=== PATIENT | male | born 1935 | race Caucasian/White ===

== ENCOUNTER 2019-05-24 18:30 | Inpatient (IN) | payer MEDICARE ==
[~2019-05-24] VITALS: Ht 172.7 cm; Wt 81.0 kg
[2019-05-24] MEDS ORDERED: PLEASE ENTER ALLERGIES MC SCH (22:00)
[2019-05-24] MEDS ORDERED: BISACODYL 10 MG SUPP PR PRN (22:00)
[2019-05-24] MEDS ORDERED: hydrALAzine 20 MG/ML, 1ML IVPush PRN (22:00)
[2019-05-24] MEDS ORDERED: POLYETHYLENE GLYCOL 17 GM PACKET PO PRN (22:00)
[2019-05-24 22:07] VITALS: BP 131/72
[2019-05-24] MEDS: SODIUM CHLORIDE 0.9% 1,000 ML IV SCH (22:40)
[2019-05-24] MEDS: CEFTRIAXONE PMX 1GM/50ML 50 ML IV SCH (22:40)
[2019-05-24] MEDS: HEPARIN 5,000 UNITS/ML, 1ML SQ SCH (22:41)
[2019-05-24] MEDS ORDERED: LEVO100T PO (23:29)
[2019-05-24] MEDS ORDERED: ENAL20TA PO (23:29)
[2019-05-24] MEDS ORDERED: TAMS-11 PO (23:29)
[2019-05-24] MEDS ORDERED: HYDR12.59 PO (23:29)
[2019-05-24] MEDS ORDERED: ASPI-430 PO (23:29)
[2019-05-24] MEDS ORDERED: FINA5TAB4 PO (23:29)
[2019-05-24] MEDS ORDERED: CHOL500051 PO (23:29)
[2019-05-25 00:02] LABS: CREATININE,URINE RANDOM 58.3 mg/dL
[2019-05-25 01:01] VITALS: BP 130/66
[2019-05-25] MEDS: LEVOTHYROXINE 100 MCG TABLET PO SCH (06:34)
[2019-05-25] MEDS: HEPARIN 5,000 UNITS/ML, 1ML SQ SCH ×3 (06:34→22:03)
[2019-05-25] MEDS: SODIUM CHLORIDE 0.9% 1,000 ML IV SCH (06:34)
[2019-05-25 07:45] LABS: ALANINE AMINOTRANSFERASE 24 U/L (12-78); ALBUMIN 2.2 g/dL (3.4-5.0); ANION GAP 21 mmol/L (5-15); CALCIUM 8.2 mg/dL (8.5-10.1); CHLORIDE 104 mmol/L (98-107)
[2019-05-25 07:49] LABS: ALKALINE PHOSPHATASE 99 U/L (45-117); BILIRUBIN,TOTAL 0.5 mg/dL (0.2-1.0); TOTAL PROTEIN 6.2 g/dL (6.4-8.2)
[2019-05-25 07:54] VITALS: BP 138/67
[2019-05-25 08:25] LABS: MEAN CORPUSCULAR HEMOGLOBIN 32.1 pg (27.5-34.5); MEAN CORPUSCULAR HGB CONC 32.9 g/dL (33.2-36.2); MEAN CORPUSCULAR VOLUME 97.6 fL (81-97); MEAN PLATELET VOLUME 12.4 fL (7.4-10.4); PLATELET COUNT 210 x10^3/uL (130-400); RED BLOOD COUNT 3.06 x10^6/uL (4.38-5.82); RED CELL DISTRIBUTION WIDTH 13.4 % (9.4-14.8)
[2019-05-25 08:26] LABS: MD YES
[2019-05-25 08:27] LABS: BAND#(MANUAL) 1.04 x10^3/uL; BANDS%(MANUAL) 4 % (0-7); LYMPH#(MANUAL) 2.85 x10^3/uL (1-3.4); LYMPHS% (MANUAL) 11 % (22-44); METAMYELOCYTES# (MANUAL) 0.26 x10^3/uL (0-0); METAMYELOCYTES% (MANUAL) 1 % (0-1); MONOS#(MANUAL) 2.33 x10^3/uL (0.3-2.7); MONOS% (MANUAL) 9 % (2-9); SEG#(MANUAL) 19.43 x10^3/uL (1.8-6.8); SEGS% (MANUAL) 75 % (42-75)
[2019-05-25 08:28] LABS: ECHINOCYTES 1+
[2019-05-25 08:29] LABS: <PLATELET ESTIMATE> ADEQUATE; LARGE PLATELETS 1+
[2019-05-25] MEDS: SENNA/DOCUSATE TABLET PO SCH (09:00)
[2019-05-25] MEDS: CHOLECALCIFEROL 5,000u TAB PO SCH (10:17)
[2019-05-25] MEDS: FINASTERIDE 5 MG TABLET PO SCH (10:18)
[2019-05-25] MEDS: TAMSULOSIN 0.4 MG CAP.ER.24H PO SCH (10:18)
[2019-05-25 11:20] LABS: ANION GAP 18 mmol/L (5-15); CALCIUM 7.9 mg/dL (8.5-10.1); CHLORIDE 102 mmol/L (98-107)
[2019-05-25 13:10] VITALS: BP 135/66
[2019-05-25] MEDS: SODIUM BICARB 8.4%,50ML SYR. 75 MEQ in SODIUM CHLORIDE 0.45% 1,000 ML IV SCH ×2 (13:45→23:52)
[2019-05-25 20:13] VITALS: BP_SYST 136; BP_SYST 137; BP_DIAS 73
[2019-05-25] MEDS: CEFTRIAXONE PMX 1GM/50ML 50 ML IV SCH (22:03)
[2019-05-26 00:14] VITALS: BP 143/73
[2019-05-26] MEDS: HEPARIN 5,000 UNITS/ML, 1ML SQ SCH ×3 (06:32→21:20)
[2019-05-26] MEDS: LEVOTHYROXINE 100 MCG TABLET PO SCH (06:33)
[2019-05-26 07:01] LABS: MEAN CORPUSCULAR HEMOGLOBIN 32.6 pg (27.5-34.5); MEAN CORPUSCULAR HGB CONC 33.7 g/dL (33.2-36.2); MEAN CORPUSCULAR VOLUME 96.9 fL (81-97); MEAN PLATELET VOLUME 13.1 fL (7.4-10.4); PLATELET COUNT 246 x10^3/uL (130-400); RED BLOOD COUNT 2.67 x10^6/uL (4.38-5.82); RED CELL DISTRIBUTION WIDTH 13.9 % (9.4-14.8)
[2019-05-26 07:11] LABS: ALBUMIN 2.1 g/dL (3.4-5.0); ANION GAP 18 mmol/L (5-15); CALCIUM 8.1 mg/dL (8.5-10.1); CHLORIDE 105 mmol/L (98-107)
[2019-05-26 07:50] LABS: MD YES
[2019-05-26 07:52] LABS: BAND#(MANUAL) 1.18 x10^3/uL; BANDS%(MANUAL) 6 % (0-7); EOS% (MANUAL) 1 % (1-7); LYMPH#(MANUAL) 1.38 x10^3/uL (1-3.4); LYMPHS% (MANUAL) 7 % (22-44); MONOS#(MANUAL) 0.59 x10^3/uL (0.3-2.7); MONOS% (MANUAL) 3 % (2-9); SEG#(MANUAL) 16.35 x10^3/uL (1.8-6.8); SEGS% (MANUAL) 83 % (42-75)
[2019-05-26 07:53] LABS: <PLATELET ESTIMATE> ADEQUATE; ANISOCYTOSIS 1+; LARGE PLATELETS 1+
[2019-05-26 08:00] VITALS: BP 151/72
[2019-05-26] MEDS: FINASTERIDE 5 MG TABLET PO SCH (08:48)
[2019-05-26] MEDS: TAMSULOSIN 0.4 MG CAP.ER.24H PO SCH (08:49)
[2019-05-26] MEDS: CHOLECALCIFEROL 5,000u TAB PO SCH (08:49)
[2019-05-26] MEDS: SENNA/DOCUSATE TABLET PO SCH (08:49)
[2019-05-26] MEDS: SODIUM BICARB 8.4%,50ML SYR. 75 MEQ in SODIUM CHLORIDE 0.45% 1,000 ML IV SCH ×2 (08:50→22:08)
[2019-05-26] MEDS: ONDANSETRON ODT 4 MG PO PRN (12:27)
[2019-05-26 15:00] VITALS: BP 123/66
[2019-05-26 17:46] LABS: CREATININE,URINE RANDOM 42.5 mg/dL
[2019-05-26 17:53] LABS: MICROSCOPIC INDICATED
[2019-05-26 17:56] LABS: CULTURE INDICATED? YES
[2019-05-26 19:53] VITALS: BP 125/69
[2019-05-26] MEDS: CEFTRIAXONE PMX 1GM/50ML 50 ML IV SCH (22:08)
[2019-05-27 02:05] VITALS: BP 153/64
[2019-05-27] MEDS: LEVOTHYROXINE 100 MCG TABLET PO SCH (05:48)
[2019-05-27] MEDS: HEPARIN 5,000 UNITS/ML, 1ML SQ SCH ×3 (05:49→22:26)
[2019-05-27 07:13] VITALS: BP 145/69
[2019-05-27 07:15] LABS: ANION GAP 19 mmol/L (5-15); CALCIUM 7.7 mg/dL (8.5-10.1); CHLORIDE 103 mmol/L (98-107)
[2019-05-27 07:51] LABS: MEAN CORPUSCULAR HEMOGLOBIN 32.7 pg (27.5-34.5); MEAN CORPUSCULAR HGB CONC 33.5 g/dL (33.2-36.2); MEAN CORPUSCULAR VOLUME 97.7 fL (81-97); MEAN PLATELET VOLUME 12.3 fL (7.4-10.4); PLATELET COUNT 252 x10^3/uL (130-400); RED BLOOD COUNT 2.59 x10^6/uL (4.38-5.82); RED CELL DISTRIBUTION WIDTH 13.8 % (9.4-14.8)
[2019-05-27 07:52] LABS: MD YES
[2019-05-27 07:54] LABS: BAND#(MANUAL) 0.99 x10^3/uL; BANDS%(MANUAL) 6 % (0-7); EOS#(MANUAL) 0.17 x10^3/uL (0.0-0.4); EOS% (MANUAL) 1 % (1-7); LYMPH#(MANUAL) 0.66 x10^3/uL (1-3.4); LYMPHS% (MANUAL) 4 % (22-44); MONOS#(MANUAL) 0.99 x10^3/uL (0.3-2.7); MONOS% (MANUAL) 6 % (2-9); SEGS% (MANUAL) 83 % (42-75)
[2019-05-27 08:00] LABS: <PLATELET ESTIMATE> ADEQUATE; ANISOCYTOSIS 1+; GIANT PLATELETS 1+; LARGE PLATELETS 1+
[2019-05-27] MEDS: TAMSULOSIN 0.4 MG CAP.ER.24H PO SCH (09:06)
[2019-05-27] MEDS: CHOLECALCIFEROL 5,000u TAB PO SCH (09:06)
[2019-05-27] MEDS: FINASTERIDE 5 MG TABLET PO SCH (09:07)
[2019-05-27] MEDS: SENNA/DOCUSATE TABLET PO SCH (09:07)
[2019-05-27 12:45] VITALS: BP 161/72
[2019-05-27] MEDS: SODIUM BICARB 8.4%,50ML SYR. 75 MEQ in SODIUM CHLORIDE 0.45% 1,000 ML IV SCH (14:42)
[2019-05-27 19:53] VITALS: BP 151/63
[2019-05-27] MEDS: CEFTRIAXONE PMX 1GM/50ML 50 ML IV SCH (22:26)
[2019-05-28 00:56] VITALS: BP 145/72
[2019-05-28 04:42] LABS: ANION GAP 18 mmol/L (5-15); CALCIUM 7.4 mg/dL (8.5-10.1); CHLORIDE 102 mmol/L (98-107)
[2019-05-28 05:01] LABS: MEAN CORPUSCULAR HEMOGLOBIN 32.6 pg (27.5-34.5); MEAN CORPUSCULAR HGB CONC 34.2 g/dL (33.2-36.2); MEAN CORPUSCULAR VOLUME 95.5 fL (81-97); MEAN PLATELET VOLUME 12.1 fL (7.4-10.4); PLATELET COUNT 274 x10^3/uL (130-400); RED BLOOD COUNT 2.55 x10^6/uL (4.38-5.82); RED CELL DISTRIBUTION WIDTH 13.4 % (9.4-14.8)
[2019-05-28] MEDS: LEVOTHYROXINE 100 MCG TABLET PO SCH (05:16)
[2019-05-28] MEDS: HEPARIN 5,000 UNITS/ML, 1ML SQ SCH ×2 (05:16→17:34)
[2019-05-28 06:33] LABS: MD YES
[2019-05-28 06:35] LABS: <PLATELET ESTIMATE> ADEQUATE; ANISOCYTOSIS 1+; LYMPH#(MANUAL) 2.92 x10^3/uL (1-3.4); LYMPHS% (MANUAL) 18 % (22-44); MONOS#(MANUAL) 0.97 x10^3/uL (0.3-2.7); MONOS% (MANUAL) 6 % (2-9); SEG#(MANUAL) 12.31 x10^3/uL (1.8-6.8); SEGS% (MANUAL) 76 % (42-75)
[2019-05-28 06:36] LABS: LARGE PLATELETS 1+
[2019-05-28 08:00] VITALS: BP 146/69
[2019-05-28] MEDS: FINASTERIDE 5 MG TABLET PO SCH (09:02)
[2019-05-28] MEDS: SENNA/DOCUSATE TABLET PO SCH (09:02)
[2019-05-28] MEDS: TAMSULOSIN 0.4 MG CAP.ER.24H PO SCH (09:02)
[2019-05-28] MEDS: CHOLECALCIFEROL 5,000u TAB PO SCH (09:02)
[2019-05-28] MEDS: SEVELAMER CARBONATE 800MG TAB PO SCH ×2 (12:31→17:34)
[2019-05-28] MEDS: SODIUM BICARB 8.4%,50ML SYR. 75 MEQ in SODIUM CHLORIDE 0.45% 1,000 ML IV SCH (15:09)
[2019-05-28 16:12] VITALS: BP 131/58
[2019-05-28 19:34] VITALS: BP 150/70
[2019-05-28] MEDS: CEFTRIAXONE PMX 1GM/50ML 50 ML IV SCH (22:10)
[2019-05-29] MEDS: HEPARIN 5,000 UNITS/ML, 1ML SQ SCH ×3 (01:11→16:52)
[2019-05-29 01:24] VITALS: BP 138/62
[2019-05-29] MEDS: LEVOTHYROXINE 100 MCG TABLET PO SCH (05:13)
[2019-05-29 06:04] LABS: MEAN CORPUSCULAR HEMOGLOBIN 32.2 pg (27.5-34.5); MEAN CORPUSCULAR HGB CONC 32.9 g/dL (33.2-36.2); MEAN CORPUSCULAR VOLUME 97.6 fL (81-97); RED BLOOD COUNT 2.53 x10^6/uL (4.38-5.82); RED CELL DISTRIBUTION WIDTH 13.4 % (9.4-14.8)
[2019-05-29 06:17] LABS: ANION GAP 17 mmol/L (5-15); CALCIUM 8.1 mg/dL (8.5-10.1); CHLORIDE 103 mmol/L (98-107)
[2019-05-29 06:24] LABS: % IRON SATURATION 17 % (20-55); CREATININE 8.25 mg/dL (0.7-1.3); IRON LEVEL 31 mcg/dL (65-175); TOTAL IRON BINDING CAPACITY 182 mcg/dL (250-450)
[2019-05-29 06:28] LABS: BASOPHILS # (AUTO) 0.04 x10^3/uL (0-0.1); BASOPHILS % (AUTO) 0 % (0-1); EOSINOPHILS % (AUTO) 0 % (1-7); LYMPHOCYTES # (AUTO) 0.59 x10^3/uL (1-3.4); LYMPHOCYTES % (AUTO) 4 % (22-44); MD SCAN; MEAN PLATELET VOLUME 11.6 fL (7.4-10.4); MONOCYTES # (AUTO) 0.66 x10^3/uL (0.2-0.8); MONOCYTES % (AUTO) 4 % (2-9); NEUTROPHILS # (AUTO) 15.14 x10^3/uL (1.8-6.8); NEUTROPHILS % (AUTO) 92 % (42-75); PLATELET COUNT 312 x10^3/uL (130-400)
[2019-05-29 06:53] VITALS: BP 128/60
[2019-05-29] MEDS: TAMSULOSIN 0.4 MG CAP.ER.24H PO SCH (08:15)
[2019-05-29] MEDS: CHOLECALCIFEROL 5,000u TAB PO SCH (08:15)
[2019-05-29] MEDS: FINASTERIDE 5 MG TABLET PO SCH (08:15)
[2019-05-29] MEDS: SEVELAMER CARBONATE 800MG TAB PO SCH ×3 (08:15→16:52)
[2019-05-29] MEDS: SENNA/DOCUSATE TABLET PO SCH (08:15)
[2019-05-29 13:45] VITALS: BP 149/66
[2019-05-29] MEDS ORDERED: SIMETHICONE 80 MG CHEW TAB PO PRN (16:00)
[2019-05-29 20:00] VITALS: BP 171/66
[2019-05-29] MEDS: CEFTRIAXONE PMX 1GM/50ML 50 ML IV SCH (22:34)
[2019-05-29 22:38] VITALS: BP 150/93
[2019-05-30 00:58] VITALS: BP 139/62
[2019-05-30] MEDS: HEPARIN 5,000 UNITS/ML, 1ML SQ SCH ×3 (01:00→17:00)
[2019-05-30 04:45] LABS: MEAN CORPUSCULAR HEMOGLOBIN 32.5 pg (27.5-34.5); MEAN CORPUSCULAR HGB CONC 33.5 g/dL (33.2-36.2); MEAN CORPUSCULAR VOLUME 97.3 fL (81-97); MEAN PLATELET VOLUME 10.8 fL (7.4-10.4); PLATELET COUNT 285 x10^3/uL (130-400); RED BLOOD COUNT 2.46 x10^6/uL (4.38-5.82); RED CELL DISTRIBUTION WIDTH 13.5 % (9.4-14.8)
[2019-05-30 04:56] LABS: ALBUMIN 1.9 g/dL (3.4-5.0); ANION GAP 11 mmol/L (5-15); CHLORIDE 103 mmol/L (98-107)
[2019-05-30 04:59] LABS: CREATININE 5.38 mg/dL (0.7-1.3)
[2019-05-30 05:48] LABS: BASOPHILS % (AUTO) 1 % (0-1); EOSINOPHILS # (AUTO) 0.03 x10^3/uL (0-0.4); EOSINOPHILS % (AUTO) 0 % (1-7); LYMPHOCYTES # (AUTO) 0.71 x10^3/uL (1-3.4); LYMPHOCYTES % (AUTO) 4 % (22-44); MD SCAN; MONOCYTES # (AUTO) 0.88 x10^3/uL (0.2-0.8); MONOCYTES % (AUTO) 5 % (2-9); NEUTROPHILS # (AUTO) 16.83 x10^3/uL (1.8-6.8); NEUTROPHILS % (AUTO) 91 % (42-75)
[2019-05-30] MEDS: LEVOTHYROXINE 100 MCG TABLET PO SCH (05:48)
[2019-05-30 06:19] VITALS: BP 152/67
[2019-05-30] MEDS: SEVELAMER CARBONATE 800MG TAB PO SCH ×3 (08:51→17:00)
[2019-05-30] MEDS: FINASTERIDE 5 MG TABLET PO SCH (08:51)
[2019-05-30] MEDS: TAMSULOSIN 0.4 MG CAP.ER.24H PO SCH (08:51)
[2019-05-30] MEDS: CHOLECALCIFEROL 5,000u TAB PO SCH (08:51)
[2019-05-30] MEDS: SENNA/DOCUSATE TABLET PO SCH (08:51)
[2019-05-30 12:13] VITALS: BP 162/70
[2019-05-30] MEDS: ONDANSETRON ODT 4 MG PO PRN (12:19)
[2019-05-30 19:38] VITALS: BP 155/64
[2019-05-30] MEDS: CEFTRIAXONE PMX 1GM/50ML 50 ML IV SCH (22:18)
[2019-05-31] MEDS: HEPARIN 5,000 UNITS/ML, 1ML SQ SCH ×4 (01:19→22:38)
[2019-05-31 01:34] VITALS: BP 147/70
[2019-05-31] MEDS: LEVOTHYROXINE 100 MCG TABLET PO SCH (05:41)
[2019-05-31 06:43] VITALS: BP 137/65
[2019-05-31 07:42] LABS: ANION GAP 12 mmol/L (5-15); CALCIUM 7.7 mg/dL (8.5-10.1); CHLORIDE 101 mmol/L (98-107); CREATININE 7.81 mg/dL (0.7-1.3)
[2019-05-31] MEDS: FINASTERIDE 5 MG TABLET PO SCH (08:38)
[2019-05-31] MEDS: TAMSULOSIN 0.4 MG CAP.ER.24H PO SCH (08:39)
[2019-05-31] MEDS: CHOLECALCIFEROL 5,000u TAB PO SCH (08:39)
[2019-05-31] MEDS: SEVELAMER CARBONATE 800MG TAB PO SCH ×3 (08:40→21:32)
[2019-05-31] MEDS: SENNA/DOCUSATE TABLET PO SCH (08:40)
[2019-05-31 13:02] VITALS: BP 131/62
[2019-05-31 22:18] VITALS: BP 154/68
[2019-05-31] MEDS: CEFTRIAXONE PMX 1GM/50ML 50 ML IV SCH (22:38)
[2019-06-01 01:32] VITALS: BP 138/68
[2019-06-01] MEDS: LEVOTHYROXINE 100 MCG TABLET PO SCH (05:43)
[2019-06-01 06:34] LABS: ANION GAP 11 mmol/L (5-15); CHLORIDE 100 mmol/L (98-107); CREATININE 5.36 mg/dL (0.7-1.3); MEAN CORPUSCULAR HEMOGLOBIN 32.4 pg (27.5-34.5); MEAN CORPUSCULAR HGB CONC 33.1 g/dL (33.2-36.2); MEAN CORPUSCULAR VOLUME 97.8 fL (81-97); RED BLOOD COUNT 2.44 x10^6/uL (4.38-5.82); RED CELL DISTRIBUTION WIDTH 13.7 % (9.4-14.8)
[2019-06-01 07:13] VITALS: BP 125/68
[2019-06-01 08:23] LABS: MEAN PLATELET VOLUME 10.6 fL (7.4-10.4); PLATELET COUNT 252 x10^3/uL (130-400)
[2019-06-01 08:24] LABS: MD SCAN
[2019-06-01 08:25] LABS: BASOPHILS # (AUTO) 0.03 x10^3/uL (0-0.1); BASOPHILS % (AUTO) 0 % (0-1); EOSINOPHILS # (AUTO) 0.19 x10^3/uL (0-0.4); EOSINOPHILS % (AUTO) 1 % (1-7); LYMPHOCYTES # (AUTO) 0.92 x10^3/uL (1-3.4); LYMPHOCYTES % (AUTO) 5 % (22-44); MONOCYTES # (AUTO) 0.77 x10^3/uL (0.2-0.8); MONOCYTES % (AUTO) 5 % (2-9); NEUTROPHILS # (AUTO) 15.36 x10^3/uL (1.8-6.8); NEUTROPHILS % (AUTO) 89 % (42-75)
[2019-06-01] MEDS: TAMSULOSIN 0.4 MG CAP.ER.24H PO SCH (08:28)
[2019-06-01] MEDS: SENNA/DOCUSATE TABLET PO SCH (08:28)
[2019-06-01] MEDS: FINASTERIDE 5 MG TABLET PO SCH (08:28)
[2019-06-01] MEDS: CHOLECALCIFEROL 5,000u TAB PO SCH (08:28)
[2019-06-01] MEDS: SEVELAMER CARBONATE 800MG TAB PO SCH ×3 (08:28→20:13)
[2019-06-01] MEDS ORDERED: LIDOCAINE 1%, 20ML ONE (10:36)
[2019-06-01 10:41] LABS: QUANTIFERON TB Ag1-NIL 0 (0.000-0.000)
[2019-06-01] MEDS ORDERED: MIDAZOLAM 1 MG/ML, 5ML ONE (10:59)
[2019-06-01] MEDS ORDERED: FLUMAZENIL 0.1 MG/1 ML, 5ML ONE (10:59)
[2019-06-01] MEDS ORDERED: NALOXONE 1 MG/ML, 2ML ONE (10:59)
[2019-06-01] MEDS ORDERED: FENTANYL PF 100 MCG/2ML ONE (10:59)
[2019-06-01] MEDS: HEPARIN 5,000 UNITS/ML, 1ML SQ SCH ×2 (11:30→20:12)
[2019-06-01 12:06] VITALS: BP 123/67
[2019-06-01 12:40] VITALS: BP 143/66
[2019-06-01 19:52] VITALS: BP 143/73
[2019-06-01] MEDS: CEFTRIAXONE PMX 1GM/50ML 50 ML IV SCH (23:18)
[2019-06-02 00:41] VITALS: BP 145/64
[2019-06-02] MEDS: HEPARIN 5,000 UNITS/ML, 1ML SQ SCH ×3 (04:15→20:08)
[2019-06-02] MEDS: LEVOTHYROXINE 100 MCG TABLET PO SCH (05:17)
[2019-06-02 08:00] VITALS: BP 150/69
[2019-06-02] MEDS: TAMSULOSIN 0.4 MG CAP.ER.24H PO SCH (08:07)
[2019-06-02] MEDS: SENNA/DOCUSATE TABLET PO SCH (08:07)
[2019-06-02] MEDS: CHOLECALCIFEROL 5,000u TAB PO SCH (08:07)
[2019-06-02] MEDS: SEVELAMER CARBONATE 800MG TAB PO SCH ×3 (08:08→20:08)
[2019-06-02] MEDS: FINASTERIDE 5 MG TABLET PO SCH (08:16)
[2019-06-02 15:02] VITALS: BP 120/61
[2019-06-02] MEDS: ACETAMINOPHEN 325 MG TABLET PO PRN ×2 (15:31→20:08)
[2019-06-02 19:16] VITALS: BP 131/65
[2019-06-02] MEDS: CEFTRIAXONE PMX 1GM/50ML 50 ML IV SCH (22:39)
[2019-06-03 00:01] VITALS: BP 109/63
[2019-06-03] MEDS: ACETAMINOPHEN 325 MG TABLET PO PRN (02:27)
[2019-06-03] MEDS: HEPARIN 5,000 UNITS/ML, 1ML SQ SCH (05:24)
[2019-06-03] MEDS: LEVOTHYROXINE 100 MCG TABLET PO SCH (05:25)
[2019-06-03 06:49] LABS: MEAN CORPUSCULAR HEMOGLOBIN 32.9 pg (27.5-34.5); MEAN CORPUSCULAR HGB CONC 33.4 g/dL (33.2-36.2); MEAN CORPUSCULAR VOLUME 98.4 fL (81-97); RED BLOOD COUNT 2.41 x10^6/uL (4.38-5.82); RED CELL DISTRIBUTION WIDTH 13.5 % (9.4-14.8)
[2019-06-03 06:51] LABS: ANION GAP 11 mmol/L (5-15); CALCIUM 7.5 mg/dL (8.5-10.1); CHLORIDE 99 mmol/L (98-107)
[2019-06-03 06:53] LABS: CREATININE 5.46 mg/dL (0.7-1.3)
[2019-06-03 07:09] VITALS: BP 131/71
[2019-06-03 08:06] LABS: PLATELET COUNT 211 x10^3/uL (130-400)
[2019-06-03 08:07] LABS: MEAN PLATELET VOLUME 11.1 fL (7.4-10.4)
[2019-06-03 08:08] LABS: MD SCAN
[2019-06-03 08:09] LABS: BASOPHILS # (AUTO) 0.23 x10^3/uL (0-0.1); BASOPHILS % (AUTO) 2 % (0-1); EOSINOPHILS # (AUTO) 0.34 x10^3/uL (0-0.4); EOSINOPHILS % (AUTO) 2 % (1-7); LYMPHOCYTES # (AUTO) 1.22 x10^3/uL (1-3.4); LYMPHOCYTES % (AUTO) 8 % (22-44); MONOCYTES # (AUTO) 1.09 x10^3/uL (0.2-0.8); MONOCYTES % (AUTO) 7 % (2-9); NEUTROPHILS # (AUTO) 12.56 x10^3/uL (1.8-6.8); NEUTROPHILS % (AUTO) 81 % (42-75)
[2019-06-03] MEDS: CHOLECALCIFEROL 5,000u TAB PO SCH (08:33)
[2019-06-03] MEDS: SENNA/DOCUSATE TABLET PO SCH (08:34)
[2019-06-03] MEDS: FINASTERIDE 5 MG TABLET PO SCH (08:34)
[2019-06-03] MEDS: TAMSULOSIN 0.4 MG CAP.ER.24H PO SCH (08:34)
[2019-06-03] MEDS: SEVELAMER CARBONATE 800MG TAB PO SCH ×2 (08:34→11:37)
[2019-06-03] MEDS ORDERED: SEVE800T8 PO (12:12)
[2019-06-06 10:10] LABS: QUANTIFERON TB Ag1-NIL -0.01 (0.000-0.000)
== END 2019-06-03 14:19 | disposition home or self-care (01) | DRG 871 ==
LOC: 4WST 21:16 → DCLOUNGE 06-03 13:59
PROVIDERS: ADMIT Hospitalist; ATTEND Family Medicine
PROC: 5A1D70Z Performance of Urinary Filtration, Intermittent, Less than 6 Hours Per Day (ICD-10-PCS; 2019-05-28)
PROC: 02HV33Z Insertion of Infusion Device into Superior Vena Cava, Percutaneous Approach (ICD-10-PCS; 2019-05-28)
PROC: B5181ZA Fluoroscopy of Superior Vena Cava using Low Osmolar Contrast, Guidance (ICD-10-PCS; 2019-05-28)
PROC: B548ZZA Ultrasonography of Superior Vena Cava, Guidance (ICD-10-PCS; 2019-05-28)
PROC: 5A1D70Z Performance of Urinary Filtration, Intermittent, Less than 6 Hours Per Day (ICD-10-PCS; 2019-05-29)
PROC: 5A1D70Z Performance of Urinary Filtration, Intermittent, Less than 6 Hours Per Day (ICD-10-PCS; 2019-05-31)
PROC: 0JH63XZ Insertion of Tunneled Vascular Access Device into Chest Subcutaneous Tissue and Fascia, Percutaneous Approach (ICD-10-PCS; 2019-06-01)
PROC: 02HV33Z Insertion of Infusion Device into Superior Vena Cava, Percutaneous Approach (ICD-10-PCS; 2019-06-01)
PROC: B5181ZA Fluoroscopy of Superior Vena Cava using Low Osmolar Contrast, Guidance (ICD-10-PCS; 2019-06-01)
PROC: B548ZZA Ultrasonography of Superior Vena Cava, Guidance (ICD-10-PCS; 2019-06-01)
PROC: 5A1D70Z Performance of Urinary Filtration, Intermittent, Less than 6 Hours Per Day (ICD-10-PCS; principal; 2019-06-02)
DX: A41.50 Gram-negative sepsis, unspecified (principal); N17.0 Acute kidney failure with tubular necrosis; N18.6 End stage renal disease; E87.1 Hypo-osmolality and hyponatremia; N13.6 Pyonephrosis; I12.0 Hypertensive chronic kidney disease with stage 5 chronic kidney disease or end stage renal disease; E86.1 Hypovolemia; D63.8 Anemia in other chronic diseases classified elsewhere; E03.9 Hypothyroidism, unspecified; E88.09 Other disorders of plasma-protein metabolism, not elsewhere classified; H91.90 Unspecified hearing loss, unspecified ear; N28.1 Cyst of kidney, acquired; N40.0 Benign prostatic hyperplasia without lower urinary tract symptoms
CPT/HCPCS: 36415; 36556; 36558; 71045; 74176; 76770; 77001; 80048; 80053; 80069; 81001; 82436; 82570; 82728; 83520; 83540; 83550; 83735; 83970; 84100; 84133; 84156; 84300; 84443; 85025; 86256; 86480; 86705; 86706; 86803; 87040; 87086; 87186; 87340; 90935; 99156; 99157; G0378; J0696; J1644; J2250; J3010; Q0162; C1751; J1642; J2310; J7030